=== PATIENT | female | born 1995 | race African-American/Black ===

== ENCOUNTER 2025-01-12 01:20 | Emergency (ER) | payer SELFPAY ==
[~2025-01-12] VITALS: Ht 167.6 cm; Wt 59.0 kg
[2025-01-12 01:26] VITALS: O2SAT 96
[2025-01-12 01:45] VITALS: TEMP 36.7; O2SAT 99
[2025-01-12] MEDS ORDERED: NAPR-1486 MT (01:57)
[2025-01-12] MEDS ORDERED: AMOX1TAB16 MT (01:57)
[2025-01-12 02:21] VITALS: BP 119/82; PULSE 78; RESP 16
[2025-01-12] MEDS: METOCLOPRAMIDE HCL 10MG TABLET PO ONE (02:21)
[2025-01-12] MEDS: AMOXICILLIN/POTASSIUM CLAVULANATE 875/125MG TAB PO ONE (02:21)
[2025-01-12] MEDS: KETOROLAC 30MG/ML VIAL IM ONE (02:21)
[2025-01-12 02:22] VITALS: TEMP 98
[2025-01-12] MEDS: ACETAMINOPHEN 325MG TABLET PO ONE (02:22)
== END 2025-01-12 02:25 | disposition home or self-care (01) ==
LOC: ER 01:20
DX: K04.7 Periapical abscess without sinus (principal)
CPT/HCPCS: 99284; 96372; J1885; J8597

== ENCOUNTER 2025-01-16 22:18 | Emergency (ER) | payer MEDICAID ==
[~2025-01-16] VITALS: Ht 165.1 cm; Wt 61.2 kg
[~2025-01-16 22:18] MED LIST: AMOX1TAB16 MT; NAPR-1486 MT
[2025-01-16 22:21] VITALS: O2SAT 99
[2025-01-16 22:26] VITALS: BP 129/81; PULSE 85; RESP 18; TEMP 36.9; O2SAT 99
[2025-01-16] MEDS ORDERED: KETOROLAC 30MG/ML VIAL IV STA (23:35)
[2025-01-16] MEDS ORDERED: METOCLOPRAMIDE HCL 10MG/2ML VIAL IV ONE (23:45)
[2025-01-16] MEDS ORDERED: SODIUM CHLORIDE 0.9% 1,000 ML IV ONE (23:45)
[2025-01-16] MEDS ORDERED: DIPHENHYDRAMINE 50MG/ML VIAL IV ONE (23:45)
[2025-01-16] MEDS ORDERED: CEFTRIAXONE 1GM/50ML 50 ML IV ONE (23:45)
[2025-01-16 23:59] LABS: DIFFERENTIAL COMMENT 0; EOSINOPHILS % 0.8 % (0.0-5.0); HEMATOCRIT. 35.6 % (36.0-48.0); HEMOGLOBIN. 11.6 g/dL (12.0-16.0); LYMPHOCYTES % 44.9 % (20.0-50.0); MEAN CORPUSCULAR HEMOGLOBIN 33.4 pg (28.0-32.0); MEAN CORPUSCULAR HGB CONC 32.6 g/dL (31.0-37.0); MEAN CORPUSCULAR VOLUME 102.6 fL (81.0-99.0); MEAN PLATELET VOLUME 9.3 fl (7.4-10.4); MONOCYTES % 5.7 % (2.0-8.0); NEUTROPHILS % 47.6 % (40.0-76.0); PLATELET 180 x1000/uL (130-400); RED BLOOD CELL COUNT 3.47 mill/uL (4.2-5.4); RED CELL DISTRIBUTION WIDTH 13.7 % (11.6-14.6); WHITE BLOOD COUNT 6.1 x1000/uL (4.5-11.0)
[2025-01-17] LABS: CHLORIDE 107 mEq/L (98-107); POTASSIUM 3.7 mEq/L (3.5-5.1); SODIUM 142 mEq/L (136-145)
[2025-01-17 00:01] LABS: CARBON DIOXIDE 30 mEq/L (21-32)
[2025-01-17 00:02] LABS: CALCIUM 9.6 mg/dL (8.7-10.4)
[2025-01-17 00:06] LABS: CREATININE 0.7 mg/dL (0.6-1.0); GLUCOSE 89 mg/dL (70-105)
[2025-01-17 00:07] LABS: UREA NITROGEN BLOOD 13 mg/dL (9-23)
[2025-01-17 00:08] LABS: ALANINE AMINOTRANSFERASE 12 IU/L (10-49); ALBUMIN 4.2 g/dL (3.2-4.8); ASPARTATE AMINOTRANSFERASE 18 IU/L (<34)
[2025-01-17 00:09] LABS: BILIRUBIN DIRECT < 0.1 mg/dL (<=3.0); BILIRUBIN TOTAL 0.3 mg/dL (0.1-1.0); TROPONIN I HIGH SENSITIVITY < 4 ng/L (3.0-34)
[2025-01-17 00:12] LABS: CLARITY URINE CLOUDY (CLEAR); COLOR URINE DARK YELLOW (YELLOW); GLUCOSE URINE NEGATIVE (NEGATIVE); KETONES URINE TRACE (NEGATIVE); LEUKOCYTE ESTERASE URINE 1+ (NEGATIVE); NITRITE URINE NEGATIVE (NEGATIVE); OCCULT BLOOD URINE NEGATIVE (NEGATIVE); PH URINE 6.5 (4.5-8.0); PROTEIN URINE TRACE (NEGATIVE); SPECIFIC GRAVITY URINE 1.042 (1.005-1.030)
[2025-01-17 00:14] LABS: HCG SCREEN NEGATIVE
[2025-01-17 04:12] LABS: SQUAMOUS EPITHELIAL CELL URINE 1+ /lpf (RARE/1+)
[2025-01-17 04:13] LABS: RBC URINE 0-2 /hpf (0-2)
[2025-01-17 04:16] LABS: BACTERIA URINE TRACE; YEAST URINE 1+
[2025-01-19 13:07] LABS: CHLAMYDIA TRACHOMATIS NAA Negative (Negative); NEISSERIA GONORRHOEAE NAA Negative (Negative)
== END 2025-01-16 23:38 | disposition left against medical advice (07) ==
LOC: ER 22:18
DX: R51.9 Headache, unspecified (principal); M79.89 Other specified soft tissue disorders; I49.9 Cardiac arrhythmia, unspecified
CPT/HCPCS: 99285; 93970; 71045; 87491; 87591; 80076; 80048; 81003; 84703; 85025; 84484; 36415; 93005; J7030

== ENCOUNTER 2025-01-18 01:05 | Emergency (ER) | payer MEDICAID ==
[~2025-01-18] VITALS: Ht 165.1 cm; Wt 63.0 kg
[2025-01-18 01:11] VITALS: TEMP 36.7; O2SAT 99
[2025-01-18 01:14] VITALS: BP 122/75; PULSE 78; RESP 20; O2SAT 100
[2025-01-18] MEDS: FLUCONAZOLE 100MG TABLET PO ONE (03:00)
[2025-01-18] MEDS: FLUCONAZOLE 50MG TABLET PO ONE (03:00)
[2025-01-18] MEDS ORDERED: NITR100C MT (03:01)
[2025-01-18] MEDS ORDERED: FLUC150T46 MT (03:01)
[2025-01-18] MEDS ORDERED: KETO10TA2 MT (03:01)
[2025-01-18] MEDS: KETOROLAC 30MG/ML VIAL IM ONE (03:27)
== END 2025-01-18 03:31 | disposition home or self-care (01) ==
LOC: ER 01:05
DX: K08.89 Other specified disorders of teeth and supporting structures (principal); R51.9 Headache, unspecified; N39.0 Urinary tract infection, site not specified; Z79.1 Long term (current) use of non-steroidal anti-inflammatories (NSAID)
CPT/HCPCS: 99283; 96372; J1885

== ENCOUNTER 2025-07-24 23:25 | Emergency (ER) | payer MEDICAID, OTHER ==
[~2025-07-24] VITALS: Ht 175.3 cm; Wt 58.0 kg
[~2025-07-24 23:25] MED LIST changes: +FLUC150T46 MT; +KETO10TA2 MT; +NITR100C MT
[2025-07-24 23:48] VITALS: BP 115/67; TEMP 36.8; O2SAT 96
[2025-07-24 23:51] VITALS: PULSE 89; RESP 18; O2SAT 99
[2025-07-25] MEDS ORDERED: DOXY100C5 MT (00:28)
[2025-07-25 00:31] LABS: CLARITY URINE CLOUDY (CLEAR); COLOR URINE DARK YELLOW (YELLOW); GLUCOSE URINE NEGATIVE (NEGATIVE); KETONES URINE TRACE (NEGATIVE); LEUKOCYTE ESTERASE URINE 1+ (NEGATIVE); NITRITE URINE NEGATIVE (NEGATIVE); OCCULT BLOOD URINE NEGATIVE (NEGATIVE); PH URINE 6.0 (4.5-8.0); PROTEIN URINE TRACE (NEGATIVE); SPECIFIC GRAVITY URINE 1.026 (1.005-1.030); UROBILINOGEN URINE 1.0 E.U./dL (0.2-1.0)
[2025-07-25] MEDS: CEFTRIAXONE SODIUM 500MG VIAL IM ONE (00:42)
[2025-07-25 03:07] LABS: SQUAMOUS EPITHELIAL CELL URINE 1+ /lpf (RARE/1+)
[2025-07-25 03:08] LABS: RBC URINE 0-2 /hpf (0-2)
[2025-07-25 03:09] LABS: BACTERIA URINE 1+
[2025-07-28 08:08] LABS: CHLAMYDIA TRACHOMATIS NAA Negative (Negative); NEISSERIA GONORRHOEAE NAA Negative (Negative)
== END 2025-07-25 00:30 | disposition home or self-care (01) ==
LOC: ER 23:25
DX: Z11.3 Encounter for screening for infections with a predominantly sexual mode of transmission (principal); N91.2 Amenorrhea, unspecified
CPT/HCPCS: 99283; 87491; 87591; 81003; 81025; 96372; J0696; Z7610 ×2

== ENCOUNTER 2025-08-11 16:40 | Emergency (ER) | payer MEDICAID ==
[~2025-08-11] VITALS: Ht 167.6 cm; Wt 57.0 kg
[~2025-08-11 16:40] MED LIST changes: +DOXY100C5 MT
[2025-08-11 16:53] VITALS: O2SAT 100
[2025-08-11 17:07] LABS: COLOR URINE YELLOW (YELLOW); GLUCOSE URINE NEGATIVE (NEGATIVE); KETONES URINE 2+ (NEGATIVE); LEUKOCYTE ESTERASE URINE TRACE (NEGATIVE); NITRITE URINE NEGATIVE (NEGATIVE); OCCULT BLOOD URINE 3+ (NEGATIVE); PH URINE 6.5 (4.5-8.0); PROTEIN URINE TRACE (NEGATIVE); SPECIFIC GRAVITY URINE 1.026 (1.005-1.030); UROBILINOGEN URINE 2.0 E.U./dL (0.2-1.0)
[2025-08-11 17:24] LABS: CLARITY URINE SL HAZY (CLEAR)
[2025-08-11 17:25] LABS: BACTERIA URINE TRACE; RBC URINE 0-2 /hpf (0-2); SQUAMOUS EPITHELIAL CELL URINE 1+ /lpf (RARE/1+); WBC URINE 0-2 /hpf (0-2)
[2025-08-11 17:26] LABS: MUCUS URINE 1+ /lpf (< = 2+)
[2025-08-11 18:00] LABS: BASOPHILS % 0.7 % (0.0-2.0); EOSINOPHILS % 0.3 % (0.0-5.0); HEMATOCRIT. 37.3 % (36.0-48.0); HEMOGLOBIN. 12.7 g/dL (12.0-16.0); LYMPHOCYTES % 41.0 % (20.0-50.0); MEAN PLATELET VOLUME 10.1 fl (7.4-10.4); MONOCYTES % 5.1 % (2.0-8.0); NEUTROPHILS % 52.9 % (40.0-76.0); PLATELET 156 x1000/uL (130-400); RED BLOOD CELL COUNT 3.82 mill/uL (4.2-5.4); RED CELL DISTRIBUTION WIDTH 12.3 % (11.6-14.6)
[2025-08-11 18:07] LABS: INR 1.1
[2025-08-11 18:12] LABS: CREATININE 0.7 mg/dL (0.6-1.0); UREA NITROGEN BLOOD 8 mg/dL (9-23)
[2025-08-11 18:13] LABS: B-HCG QUANTITATIVE < 1 mIU/mL (<6)
[2025-08-11 20:18] VITALS: BP 120/68; PULSE 80; RESP 16; TEMP 36.8; O2SAT 100
== END 2025-08-11 20:20 | disposition home or self-care (01) ==
LOC: ER 16:40
DX: N83.202 Unspecified ovarian cyst, left side (principal); R55 Syncope and collapse; R10.20 Pelvic and perineal pain unspecified side
CPT/HCPCS: 36415; 76830; 76856; 80048; 81003; 81025; 84702; 85025; 86850; 86900; 99284